=== PATIENT | male | born 1995 | race Caucasian/White ===

== ENCOUNTER 2019-03-14 10:49 | Emergency (ER) | payer OTHER ==
[~2019-03-14] VITALS: Ht 170.2 cm; Wt 98.4 kg
[2019-03-14 10:53] VITALS: BP 159/101
--- NOTE | 2019-03-14 11:24 | NUR ---
Patient/Caregiver given discharge instructions and they have confirmed that they understand the instructions. Patient ambulatory with steady gait.
== END 2019-03-14 11:25 | disposition home or self-care (01) ==
LOC: ED 11:13
DX: B30.1 Conjunctivitis due to adenovirus (principal)
CPT/HCPCS: 99283